=== PATIENT | female | born 1970 | race Caucasian/White ===

== ENCOUNTER 2019-03-10 00:44 | Emergency (ER) | payer SELFPAY ==
[~2019-03-10] VITALS: Ht 154.9 cm; Wt 65.8 kg
[~2019-03-10 00:44] MED LIST: CORTISONE CREAM; [UNRECOGNIZED DRUG - OTHER] PO
[2019-03-10 00:45] VITALS: BP 119/90
--- NOTE | 2019-03-10 00:45 | NUR ---
TO BED # 04 AMBULATORY
--- NOTE | 2019-03-10 01:01 | NUR ---
39 Y/O FEMALE PRESENTS TO ED, C/O RASH. 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 PT ENDORSED HAVING MILD RASH WHILE TAKING THE SAME MEDICATION A COUPLE MONTHS AGO. RASH LOCATED THROUGHOUT BODY. PT DENIES ANY SOB/CHEST PAIN. NO SWELLING OF TONGUE. PT DENIES ANY PAIN. PT VSS. ERMD AWARE.
[2019-03-10] MEDS ORDERED: predniSONE 20 MG TAB PO ONE (01:05)
[2019-03-10] MEDS ORDERED: diphenhydrAMINE 50 MG CAP PO ONE (01:05)
[2019-03-10] MEDS ORDERED: EPINEPHrine PFS 0.1 MG/ML SYR IVP ONE (01:05)
--- NOTE | 2019-03-10 01:36 | NUR ---
PT AWAKE, LAYING ON BED. SKIN INTEGRITY IMPROVING, RASH IS GETTING BETTER. NO SOB OR CHEST PAIN. PT C/O TREMORS, EDUCATED PT REGARDING S/E OF EPI. PT VSS. ERMD AWARE.
[2019-03-10 01:50] VITALS: BP 109/56
--- NOTE | 2019-03-10 01:50 | NUR ---
PT DISCHARGED WITH PAPERWORK. RX PREDNISONE, BENADRYL. EDUCATED PT REGARDING MEDICATIONS AND S/E. EDUCATED PT REGARDING D/C DIAGNOSIS AND INSTRUCTIONS. PT VERBALIZED UNDERSTANDING OF TEACHING. TOLD PT TO FOLLOW UP WITH PCP AND WHEN TO RETURN TO ED. PT VSS. NO SOB/CHEST PAIN. ALL QUESTIONS ANSWERED.
== END 2019-03-10 01:50 | disposition home or self-care (01) ==
LOC: MED 00:44
DX: L50.9 Urticaria, unspecified (principal); T50.995A Adverse effect of other drugs, medicaments and biological substances, initial encounter; Y92.89 Other specified places as the place of occurrence of the external cause
CPT/HCPCS: 96372; 99283; J0171; J7512; Q0163